=== PATIENT | female | born 1995 | race Hispanic/Latino ===

== ENCOUNTER 2020-10-23 17:30 | Emergency (ER) | payer OTHER, SELFPAY ==
[2020-10-23 17:37] VITALS: BP 103/52; PULSE 68; RESP 18; TEMP 36.6; O2SAT 99
[2020-10-23 18:28] LABS: Add Manual Diff / Slide Review NO; Basophils Absolute Auto 100 /uL (0-100); Basophils Percent Auto 0.9 % (0-2); Eosinophils Absolute Auto 200 /uL (0-450); Hematocrit 39.3 % (36-46); Hemoglobin 13.2 g/dL (12.0-16.0); Lymphocytes Absolute Auto 2600 /uL (1100-4500); Lymphocytes Percent Auto 41.4 % (25-40); Mean Corpuscular HGB Conc 33.5 % (30-36); Mean Corpuscular Hemoglobin 28.9 PG (26-34); Mean Corpuscular Volume 86.3 fL (80-100); Monocytes Absolute Auto 600 /uL (0-900); Monocytes Percent Auto 9.2 % (3-14); Neutrophils Absolute Auto 2800 /uL (1500-7000); Neutrophils Percent Auto 45.5 % (50-75); Platelet Count 233 X10^3/uL (150-400); Red Blood Cell Count 4.56 X10^6/uL (4.0-5.2); Red Cell Distribution Width 13.3 % (11.6-14.8); White Blood Cell Count 6.3 X10^3/uL (4.5-11.0)
[2020-10-23 18:52] LABS: Acetaminophen < 10 ug/mL (10-30); Alanine Aminotransferase 10 IU/L (<35); Albumin 4.3 g/dL (3.5-5.0); Albumin Globulin Ratio 1.5 (1.0-2.8); Alkaline Phosphatase 50 U/L (38-126); Aspartate Aminotransferase 21 IU/L (14-36); BUN Creatinine Ratio 14.1 (6-22); Bilirubin Total 0.2 mg/dL (0.2-1.3); Blood Urea Nitrogen 9 mg/dL (7-17); Calcium 9.2 mg/dL (8.4-10.2); Carbon Dioxide 28 mmol/L (22-32); Chloride 104 mmol/L (98-107); Estimated Glomerular Filt Rate > 60.0 mL/min (>60); Ethanol (ETOH) < 10 mg/dL; Globulin 2.9 g/dL (1.7-4.1); Glucose 91 mg/dL (70-100); HEMOLYSIS < 15 (0-50); Potassium 4.4 mmol/L (3.4-5.1); Salicylate < 1.0 mg/dL (<20); Sodium 138 mmol/L (137-145); Total Protein 7.2 g/dL (6.3-8.2)
--- NOTE | 2020-10-23 18:53 | ED_ITS ---
HPI - Psych General Chief Complaint: Psychiatric Symptoms Stated Complaint: Mental Health Time Seen by Provider: 10/23/20 17:57 Source: patient Mode of arrival: Ambulatory Limitations: no limitations History of Present Illness HPI Narrative: 25-year-old female nonsmoker with history of prior (but not current) drug abuse presents with her aunt in the chief complaint of episodes of self-harm recently. She has a known history of what she describes as borderline personality disorder and has struggled with it for quite some time. She came here from [place] a few months ago and has not been able to establish with a counselor or therapist here. She does have family and friends in the area and a good support system as well as gainful employment. 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 She is not suicidal or homicidal. Review of Systems Constitutional Constitutional: Denies chills, Denies fatigue, Denies fever(s), Denies frequent falls, Denies lethargy and Denies weakness Eyes Eyes: Denies change in vision, Denies eye discharge, Denies irritation and Denies loss of vision ENT Ears, Nose, Mouth, and Throat: Denies change in voice, Denies dizziness, Denies neck pain, Denies sore throat and Denies throat swelling Cardiovascular Cardiovascular: Denies chest pain, Denies irregular heart rhythm, Denies lightheadedness, Denies palpitations, Denies dyspnea, Denies dyspnea on exertion and Denies orthopnea Respiratory Respiratory: Denies cough, Denies dyspnea, Denies dyspnea on exertion and Denies wheezing Gastrointestinal Gastrointestinal: Denies abdominal pain, Denies change in bowel habits, Denies diarrhea, Denies nausea and Denies vomiting Musculoskeletal Musculoskeletal: Denies neck pain and Denies numbness Integumentary/Breasts Skin/Breast: Denies pruritus, Denies erythema, Denies rash and Denies wounds Neurologic Neurologic: Denies behavioral changes, Denies confusion, Denies dizziness, Denies frequent falls, Denies loss of vision, Denies numbness and Denies weakness Psychiatric Psychiatric: Denies anxiety, Denies behavioral changes, Denies confusion, Reports depression, Denies homicidal ideation and Denies suicidal ideation Comments: self harm Endocrine Endocrine: Denies fatigue, Denies flushing and Denies palpitations Hematologic/Lymphatic Hematologic/Lymphatic: Denies easy bruising Allergic/Immunologic Allergic/Immunologic: Denies urticaria, Denies throat swelling and Denies wheezing Patient History alcohol intake frequency: a few times a month Substance Use Type: marijuana Exam Narrative Exam Narrative: GENERAL: [25] year old patient appears stated age. Well-nourished, well-developed patient, in mild distress. GCS 15. Good eye contact, open communication, patient demonstrate is good insight HEAD: Atraumatic. Normocephalic. EYES: Pupils equal round and reactive. Extraocular motions intact. No scleral icterus. No injection or drainage. ENT: Nose without bleeding, purulent drainage. Throat without erythema, tonsillar hypertrophy or exudate. Airway patent. NECK: Trachea midline. Non tender CARDIOVASCULAR: Regular rate and rhythm without murmurs, gallops, or rubs. RESPIRATORY: Clear to auscultation. Breath sounds equal bilaterally. No wheezes, rales, or rhonchi. GASTROINTESTINAL: Abdomen soft, non-tender, nondistended. EXTREMITIES: No edema or joint tenderness. BACK: Nontender without deformity or crepitance. No flank tenderness. NEURO: AOx3. SKIN: Multiple superficial abrasions on volar surface of left forearm, none require repair or wound care No rash or erythema of visible areas Initial Vital Signs Initial Vital Signs: Vital Signs Temperature 98 F 10/23/20 17:37 Pulse Rate 68 10/23/20 17:37 Respiratory Rate 18 10/23/20 17:37 Blood Pressure 103/52 L 10/23/20 17:37 Pulse Oximetry 99 10/23/20 17:37 Course Course Course Narrative: Nursing as discussed with the be away and has established follow-up tomorrow morning. Patient has good insight and capacity. She is not suicidal, homicidal or gravely disabled. She is voluntary and requesting assistance. Nursing is established close follow-up and patient has been given return precautions. Orders Ordered: ED Orders 10/23/20 18:15 Acetaminophen Stat Complete Blood Count AUTO DIFF Stat Comprehensive Metabolic Panel Stat Ethanol (ETOH) Stat Free T4, Direct Thyroxine Stat Salicylate Stat Thyroid Stimulating Hormone Stat 10/23/20 18:37 Urine Drug Screen, Rapid Stat Vital Signs Vital signs: Vital Signs - 8 hr 10/23/20 17:37 10/23/20 20:07 Temperature 98 F Pulse Rate 68 77 Respiratory Rate 18 Blood Pressure 103/52 L 97/63 Pulse Oximetry 99 97 MDM - Psych Lab Data Result diagrams: 10/23/20 18:15 10/23/20 18:15 Labs: Lab Results 10/23/20 10/23/20 10/23/20 Range/Units 18:15 18:15 18:15 WBC 6.3 (4.5-11.0) X10^3/uL RBC 4.56 (4.0-5.2) X10^6/uL Hgb 13.2 (12.0-16.0) g/dL Hct 39.3 (36-46) % MCV 86.3 (80-100) fL MCH 28.9 (26-34) PG MCHC 33.5 (30-36) % RDW 13.3 (11.6-14.8) % Plt Count 233 (150-400) X10^3/uL Neut % (Auto) 45.5 L (50-75) % Lymph % (Auto) 41.4 H (25-40) % [place] % (Auto) 9.2 (3-14) % Eos % (Auto) 3.0 (2-4) % Baso % (Auto) 0.9 (0-2) % Neut # (Auto) 2800 (5257-4324) /uL Lymph # (Auto) 2600 (8536-9121) /uL [place] # (Auto) 600 (0-900) /uL Eos # (Auto) 200 (0-450) /uL Baso # (Auto) 100 (0-100) /uL Sodium 138 (137-145) mmol/L Potassium 4.4 (3.4-5.1) mmol/L Chloride 104 (98-107) mmol/L Carbon Dioxide 28 (22-32) mmol/L BUN 9 (7-17) mg/dL Creatinine 0.64 (0.52-1.04) mg/dL Estimated GFR > 60.0 (>60) mL/min BUN/Creatinine Ratio 14.1 (6-22) Glucose 91 (70-100) mg/dL Calcium 9.2 (8.4-10.2) mg/dL Total Bilirubin 0.2 (0.2-1.3) mg/dL AST 21 (14-36) IU/L ALT 10 (<35) IU/L Alkaline Phosphatase 50 (38-126) U/L Total Protein 7.2 (6.3-8.2) g/dL Albumin 4.3 (3.5-5.0) g/dL Globulin 2.9 (1.7-4.1) g/dL Albumin/Globulin Ratio 1.5 (1.0-2.8) TSH 1.66 (0.47-4.68) uIU/mL Free T4 0.86 (0.78-2.19) ng/dL Salicylates < 1.0 (<20) mg/dL U Opiates 300ng/mL cut (Negative) Ur Oxycodone Screen (Negative) Urine Methadone Screen (Negative) Acetaminophen < 10 L (10-30) ug/mL Ur Barbiturates Screen (Negative) U Tricyclic Antidepress (Negative) Ur Phencyclidine Scrn (Negative) Ur Amphetamines Screen (Negative) U Methamphetamines Scrn (Negative) Ur MDMA Scrn (Ecstasy) (Negative) U Benzodiazepines Scrn (Negative) Urine Cocaine Screen (Negative) U Marijuana (THC) Screen (Negative) Ethyl Alcohol < 10 ( - 10) mg/dL 10/23/20 Range/Units 18:37 WBC (4.5-11.0) X10^3/uL RBC (4.0-5.2) X10^6/uL Hgb (12.0-16.0) g/dL Hct (36-46) % MCV (80-100) fL MCH (26-34) PG MCHC (30-36) % RDW (11.6-14.8) % Plt Count (150-400) X10^3/uL Neut % (Auto) (50-75) % Lymph % (Auto) (25-40) % [place] % (Auto) (3-14) % Eos % (Auto) (2-4) % Baso % (Auto) (0-2) % Neut # (Auto) (8922-3145) /uL Lymph # (Auto) (2995-5677) /uL [place] # (Auto) (0-900) /uL Eos # (Auto) (0-450) /uL Baso # (Auto) (0-100) /uL Sodium (137-145) mmol/L Potassium (3.4-5.1) mmol/L Chloride (98-107) mmol/L Carbon Dioxide (22-32) mmol/L BUN (7-17) mg/dL Creatinine (0.52-1.04) mg/dL Estimated GFR (>60) mL/min BUN/Creatinine Ratio (6-22) Glucose (70-100) mg/dL Calcium (8.4-10.2) mg/dL Total Bilirubin (0.2-1.3) mg/dL AST (14-36) IU/L ALT (<35) IU/L Alkaline Phosphatase (38-126) U/L Total Protein (6.3-8.2) g/dL Albumin (3.5-5.0) g/dL Globulin (1.7-4.1) g/dL Albumin/Globulin Ratio (1.0-2.8) TSH (0.47-4.68) uIU/mL Free T4 (0.78-2.19) ng/dL Salicylates (<20) mg/dL U Opiates 300ng/mL cut Negative (Negative) Ur Oxycodone Screen Negative (Negative) Urine Methadone Screen Negative (Negative) Acetaminophen (10-30) ug/mL Ur Barbiturates Screen Negative (Negative) U Tricyclic Antidepress Negative (Negative) Ur Phencyclidine Scrn Negative (Negative) Ur Amphetamines Screen Negative (Negative) U Methamphetamines Scrn Negative (Negative) Ur MDMA Scrn (Ecstasy) Negative (Negative) U Benzodiazepines Scrn Negative (Negative) Urine Cocaine Screen Negative (Negative) U Marijuana (THC) Screen Positive H (Negative) Ethyl Alcohol ( - 10) mg/dL Point of Care Testing Test Results Negative Urine Dip Bedside Urine Glucose Negative Bedside Urine Bilirubin - Negative Bedside Urine Ketone - Negative Urine Specific [place] 1.015 Bedside Urine Occult Blood - Negative Bedside Urine pH 8 Bedside Urine Protein - Negative Bedside Urine Urobilinogen - Negative Bedside Urine Nitrite - Negative Bedside Urine Leukocytes - Negative Esterase Discharge Plan Departure Patient Disposition: Home Clinical Impression: Acute depression Instructions: Self-Harm, Depression Activity Restrictions/Additional Instructions: *You have been diagnosed with [depression, mild self-harm, borderline personality] *What to do: * as discussed with nursing please expect a phone call tomorrow morning at 9:00 a.m. from the crisis line to discuss a plan moving forward. They will help you through the crisis but are not long-term care and do not prescribe medications however they are great resource to help you a link up with long-term care. *Return to ER if you should have any new, worsening or concerning symptoms *If you feel that you are entering into mental health crisis you have multiple options 1. Return to the ER immediately 2. Call the Crisis Line at [phone] 3. Send an anonymous text by sending the word [place] to [phone] 4. Navigate your web browser to [employer] to engage in anonymous chat with a mental health worker
[2020-10-23 18:54] LABS: UR Morphine/Opiate cutoff 300 Negative (Negative); Ur Creatinine Normal (Normal); Ur Specific Gravity Normal (Normal); Urine Amphetamines Negative (Negative); Urine Barbiturates Negative (Negative); Urine Benzodiazepines Negative (Negative); Urine Cocaine Negative (Negative); Urine MDMA Negative (Negative); Urine Methadone Negative (Negative); Urine Methamphetamines Negative (Negative); Urine Oxycodone Negative (Negative); Urine Phencyclidine Negative (Negative); Urine Tetrahydrocannabinol Positive (Negative); Urine Tricyclic Antidepressant Negative (Negative); Urine pH Normal (Normal)
[2020-10-23 19:17] LABS: Free T4, Direct Thyroxine 0.86 ng/dL (0.78-2.19)
[2020-10-23 19:31] LABS: Thyroid Stimulating Hormone 1.66 uIU/mL (0.47-4.68)
[2020-10-23 20:07] VITALS: BP 97/63; PULSE 77; O2SAT 97
--- NOTE | 2020-10-23 20:15 | PC.NURSE ---
I spoke with Nel with [facility] at who set up a follow up call with the patient in the morning at 9am. patient is aware. provider aware.
== END 2020-10-23 20:24 | disposition home or self-care (01) ==
PROVIDERS: Emergency Medicine; Emergency Provider Emergency Medicine
DX: F32.9 Major depressive disorder, single episode, unspecified (principal)
CPT/HCPCS: 36415; 80053; 80305; 80320; 80329; 81003; 81025; 84439; 84443; 85025; 99284; G0480

== ENCOUNTER 2020-10-30 15:32 | Emergency (ER) | payer OTHER, SELFPAY ==
[2020-10-30 15:47] VITALS: BP 130/83; PULSE 88; RESP 20; TEMP 36.8; O2SAT 99; BMI 22.7
--- NOTE | 2020-10-30 15:54 | ED.NAVMDI ---
HPI - Nausea/Vomiting/Diarrhea General Chief complaint: Urogenital-Female Stated complaint: vomiting past day, nausea, crying Time Seen by Provider: 10/30/20 15:35 Source: patient Mode of arrival: Ambulatory Limitations: no limitations History of Present Illness HPI Narrative: 25-year-old female nonsmoker with history of prior (but not current) drug abuse and depression presents with the chief complaint of multiple episodes of nausea and vomiting over the course of the day with decreased appetite. She now is feeling dizzy, weak and lightheaded, particularly upon standing. She has had no fever chills. She denies dysuria, frequency or urgency. She denies any chest pain or shortness of breath. She denies any change in medications or diet. She additionally is complaining of suprapubic cramping and vaginal bleeding for the past 3 weeks. She states that at times it has been quite heavy but for the past few days she has not been saturating a pad per hour. She denies and was recently seen and evaluated here with a medical clearance with depression and was not at that time. MD complaint: nausea and vomiting Onset (ago): hour(s) Description of Vomiting: food contents Description of Diarrhea: none Quality: cramping Pain Consistency: constant Relieving factors: none Exacerbating factors: none Related Data Previous Rx's Medication Instructions Recorded medroxyprogesterone 10 mg PO DAILY #74 tab 10/30/20 Allergies Allergy/AdvReac Type Severity Reaction Status Date / Time No Known Drug Allergies Allergy Verified 10/30/20 15:53 Review of Systems Constitutional Constitutional: Denies chills, Denies fatigue, Denies fever(s), Denies frequent falls, Denies lethargy and Reports weakness Eyes Eyes: Denies change in vision, Denies eye discharge, Denies irritation and Denies loss of vision ENT Ears, Nose, Mouth, and Throat: Denies change in voice, Denies dizziness, Denies neck pain, Denies sore throat and Denies throat swelling Cardiovascular Cardiovascular: Denies chest pain, Denies irregular heart rhythm, Denies lightheadedness, Denies palpitations, Denies dyspnea, Denies dyspnea on exertion and Denies orthopnea Respiratory Respiratory: Denies cough, Denies dyspnea, Denies dyspnea on exertion and Denies wheezing Gastrointestinal Gastrointestinal: Denies abdominal pain, Denies change in bowel habits, Denies diarrhea, Reports nausea and Reports vomiting Genitourinary Genitourinary: Reports abnormal vaginal bleeding Musculoskeletal Musculoskeletal: Denies neck pain and Denies numbness Integumentary/Breasts Skin/Breast: Denies pruritus, Denies erythema, Denies rash and Denies wounds Neurologic Neurologic: Denies behavioral changes, Denies confusion, Denies dizziness, Denies frequent falls, Denies loss of vision, Denies numbness and Reports weakness Psychiatric Psychiatric: Denies anxiety, Denies behavioral changes, Denies confusion, Denies depression, Denies homicidal ideation and Denies suicidal ideation Endocrine Endocrine: Denies fatigue, Denies flushing and Denies palpitations Hematologic/Lymphatic Hematologic/Lymphatic: Denies easy bruising Allergic/Immunologic Allergic/Immunologic: Denies urticaria, Denies throat swelling and Denies wheezing Patient History Social History Smoking Status: Never smoker Smoking Status: Never smoker alcohol intake frequency: a few times a month Substance Use Type: marijuana Exam Narrative Exam Narrative: GENERAL: [25] year old patient appears stated age. Well-nourished, well-developed patient, in mild distress. HEAD: Atraumatic. Normocephalic. EYES: Pupils equal round and reactive. Extraocular motions intact. No scleral icterus. No injection or drainage. ENT: Nose without bleeding, purulent drainage. Throat without erythema, tonsillar hypertrophy or exudate. Airway patent. NECK: Trachea midline. Non tender CARDIOVASCULAR: Regular rate and rhythm without murmurs, gallops, or rubs. RESPIRATORY: Clear to auscultation. Breath sounds equal bilaterally. No wheezes, rales, or rhonchi. GASTROINTESTINAL: Abdomen soft, non-tender, nondistended. EXTREMITIES: No edema or joint tenderness. BACK: Nontender without deformity or crepitance. No flank tenderness. NEURO: AOx3. SKIN: No rash or erythema of visible areas Initial Vital Signs Initial Vital Signs: Vital Signs Temperature 98.2 F 10/30/20 15:47 Pulse Rate 88 10/30/20 15:47 Respiratory Rate 20 10/30/20 15:47 Blood Pressure 130/83 10/30/20 15:47 Pulse Oximetry 99 10/30/20 15:47 Course Orders Ordered: Discontinued Medications Sodium Chloride (Normal Saline 0.9%) 1,000 mls @ 1,000 mls/hr IV BOLUS ONE Stop: 10/30/20 16:54 Last Infusion: 10/30/20 17:20 Dose: 1,000 mls/hr Documented by: Admin: 10/30/20 16:16 Dose: 1,000 mls/hr Documented by: MARTA Ondansetron HCl (Ondansetron 4 Mg/2 Ml Inj) 4 mg IV Q4HR PRN PRN Reason: Nausea And Vomiting Last Admin: 10/30/20 16:17 Dose: 4 mg Documented by: MARTA Ondansetron HCl (Ondansetron 4 Mg Odt Prepack) 1 bottle MISC SEEINSTR ONE Stop: 10/30/20 17:43 Last Admin: 10/30/20 18:18 Dose: Not Given Documented by: MARTA Vital Signs Vital signs: Vital Signs - 8 hr 10/30/20 15:47 Temperature 98.2 F Pulse Rate 88 Respiratory Rate 20 Blood Pressure 130/83 Pulse Oximetry 99 MDM - Nausea/Vomiting/Diarrhea Lab Data Result diagrams: 10/30/20 16:12 10/30/20 16:12 Labs: Lab Results 10/30/20 10/30/20 10/30/20 Range/Units 16:12 16:12 16:25 WBC 5.2 (4.5-11.0) X10^3/uL RBC 4.41 (4.0-5.2) X10^6/uL Hgb 12.9 (12.0-16.0) g/dL Hct 37.7 (36-46) % MCV 85.4 (80-100) fL MCH 29.3 (26-34) PG MCHC 34.2 (30-36) % RDW 13.1 (11.6-14.8) % Plt Count 218 (150-400) X10^3/uL Neut % (Auto) 54.7 (50-75) % Lymph % (Auto) 35.2 (25-40) % [place] % (Auto) 7.8 (3-14) % Eos % (Auto) 1.5 L (2-4) % Baso % (Auto) 0.8 (0-2) % Neut # (Auto) 2900 (2432-6517) /uL Lymph # (Auto) 1800 (2575-3034) /uL [place] # (Auto) 400 (0-900) /uL Eos # (Auto) 100 (0-450) /uL Baso # (Auto) 0 (0-100) /uL Sodium 139 (137-145) mmol/L Potassium 3.6 (3.4-5.1) mmol/L Chloride 106 (98-107) mmol/L Carbon Dioxide 25 (22-32) mmol/L BUN 10 (7-17) mg/dL Creatinine 0.57 (0.52-1.04) mg/dL Estimated GFR > 60.0 (>60) mL/min BUN/Creatinine Ratio 17.5 (6-22) Glucose 90 (70-100) mg/dL Calcium 9.3 (8.4-10.2) mg/dL Total Bilirubin 0.5 (0.2-1.3) mg/dL AST 24 (14-36) IU/L ALT 11 (<35) IU/L Alkaline Phosphatase 53 (38-126) U/L Total Protein 7.5 (6.3-8.2) g/dL Albumin 4.4 (3.5-5.0) g/dL Globulin 3.1 (1.7-4.1) g/dL Albumin/Globulin Ratio 1.4 (1.0-2.8) Urine RBC 30-100/hpf H (0-5/HPF) Urine WBC 1-5/hpf (0-5/HPF) Ur Squamous Epith Cells 1-5 /hpf (0-5/HPF) Urine Bacteria Many (>30) H (None) Ur Culture Indicated? Specimen cultured Point of Care Testing Test Results Negative Urine Dip Bedside Urine Glucose 100 mg/dl Bedside Urine Ketone +/- 5 Urine Specific [place] 1.030 Bedside Urine Occult Blood +++ Bedside Urine pH 6 Bedside Urine Protein + 30 Bedside Urine Urobilinogen - Negative Bedside Urine Nitrite + Positive Bedside Urine Leukocytes - Negative Esterase Discharge Plan Departure Patient Disposition: Home Clinical Impression: Abnormal vaginal bleeding Vomiting Qualifiers: Vomiting type: unspecified Vomiting Intractability: intractable Nausea presence: with nausea Qualified Code(s): R11.2 - Nausea with vomiting, unspecified Instructions: DI for Vaginal Bleeding Activity Restrictions/Additional Instructions: *You have been diagnosed with [nausea, vomiting, dehydration and vaginal bleeding. Labs] *What to do: *Take medications as directed *Follow up with your primary care provider in 2-3 days, call for an appointment. Let them know you were seen in the Emergency Department and that we ask that you be seen in follow up. I understand that you do not have a primary care provider, I have given you contact information for the [facility] resource line which can help get you established with a primary care provider *Return to ER if you should have any new, worsening or concerning symptoms, such as [fever, shaking chills, vaginal bleeding through more than 1 pad per hour for multiple hours or other bothersome symptoms] Prescriptions: New medroxyprogesterone 10 mg tablet 10 mg PO DAILY Qty: 74 RF: 0
--- NOTE | 2020-10-30 15:56 | DI.US.S_ITS ---
PROCEDURE: US PELVIC COMPLETE INDICATIONS: BLEEDING, CRAMPING X 3 WEEKS TECHNIQUE: Real-time scanning was performed of the pelvic organs, with image documentation. The patient declined transvaginal scanning. COMPARISON: None. FINDINGS: Uterus: Uterus is normal in size at 7.6 x 4 x 5.5 cm. The endometrium measures 5 mm in combined thickness. Ovaries: The right ovary measures 2.7 x 2.6 x 2.9 cm. The left ovary measures 3.6 x 2.3 x 2.6 cm. The ovaries have a normal sonographic appearance. No adnexal masses are seen. Normal appearing arterial waveforms are confirmed to each ovary. Other: No pathologic free abdominal or pelvic fluid. IMPRESSION: Unremarkable transabdominal study, without an imaging explanation found for the patient's presenting history. Negative for ovarian torsion. Dictated by: Ronnie Davidson M.D. on 10/30/2020 at 16:33 Approved by: Ronnie Davidson M.D. on 10/30/2020 at 16:34
[2020-10-30] MEDS: SODIUM CHLORIDE 0.9% 1,000 ML 1000 ML IV (16:16)
[2020-10-30] MEDS: ONDANSETRON 4 MG/2 ML INJ IV (16:17)
[2020-10-30 16:19] LABS: Add Manual Diff / Slide Review NO; Basophils Absolute Auto 0 /uL (0-100); Basophils Percent Auto 0.8 % (0-2); Eosinophils Absolute Auto 100 /uL (0-450); Eosinophils Percent Auto 1.5 % (2-4); Hematocrit 37.7 % (36-46); Hemoglobin 12.9 g/dL (12.0-16.0); Lymphocytes Absolute Auto 1800 /uL (1100-4500); Lymphocytes Percent Auto 35.2 % (25-40); Mean Corpuscular HGB Conc 34.2 % (30-36); Mean Corpuscular Hemoglobin 29.3 PG (26-34); Mean Corpuscular Volume 85.4 fL (80-100); Monocytes Absolute Auto 400 /uL (0-900); Monocytes Percent Auto 7.8 % (3-14); Neutrophils Absolute Auto 2900 /uL (1500-7000); Neutrophils Percent Auto 54.7 % (50-75); Platelet Count 218 X10^3/uL (150-400); Red Blood Cell Count 4.41 X10^6/uL (4.0-5.2); Red Cell Distribution Width 13.1 % (11.6-14.8); White Blood Cell Count 5.2 X10^3/uL (4.5-11.0)
[2020-10-30 16:31] LABS: Alanine Aminotransferase 11 IU/L (<35); Albumin 4.4 g/dL (3.5-5.0); Albumin Globulin Ratio 1.4 (1.0-2.8); Alkaline Phosphatase 53 U/L (38-126); Aspartate Aminotransferase 24 IU/L (14-36); BUN Creatinine Ratio 17.5 (6-22); Bilirubin Total 0.5 mg/dL (0.2-1.3); Blood Urea Nitrogen 10 mg/dL (7-17); Calcium 9.3 mg/dL (8.4-10.2); Carbon Dioxide 25 mmol/L (22-32); Chloride 106 mmol/L (98-107); Estimated Glomerular Filt Rate > 60.0 mL/min (>60); Globulin 3.1 g/dL (1.7-4.1); Glucose 90 mg/dL (70-100); HEMOLYSIS < 15 (0-50); Potassium 3.6 mmol/L (3.4-5.1); Sodium 139 mmol/L (137-145); Total Protein 7.5 g/dL (6.3-8.2)
[2020-10-30 18:01] LABS: Bacteria Urine Many (>30); Culture Indicated Urine Specimen Cultured; RBC Urine 30-100/HPF (0-5/HPF); Squamous Epithelial Cell Urine 1-5 /HPF (0-5/HPF); WBC Urine 1-5/HPF (0-5/HPF)
[2020-10-30 18:13] VITALS: BP 113/75; PULSE 65; RESP 14; O2SAT 99
[2020-10-30 18:15] VITALS: BP 113/76; PULSE 65; RESP 14; O2SAT 99
== END 2020-10-30 18:16 | disposition home or self-care (01) ==
PROVIDERS: Emergency Provider Emergency Medicine
DX: N93.9 Abnormal uterine and vaginal bleeding, unspecified (principal); R11.2 Nausea with vomiting, unspecified
CPT/HCPCS: 76830; 76856; 80053; 81003; 81015; 81025; 85025; 87077; 87086; 87186; 96361; 96374; 99284; J2405

== ENCOUNTER 2022-09-24 09:07 | Emergency (ER) | payer OTHER, SELFPAY ==
[2022-09-24] VITALS (10 sets, daily range): BP systolic 103–134; BP diastolic 54–86; PULSE 65–81; RESP 15; TEMP 37.1; O2SAT 99–100; BMI 25.0
[2022-09-24 09:37] LABS: Add Manual Diff / Slide Review NO; Basophils Absolute Auto 0 /uL (0-100); Basophils Percent Auto 0.7 % (0-2); Eosinophils Absolute Auto 100 /uL (0-450); Eosinophils Percent Auto 1.7 % (2-4); Hematocrit 38.3 % (36-46); Hemoglobin 12.7 g/dL (12.0-16.0); Lymphocytes Absolute Auto 1800 /uL (1100-4500); Lymphocytes Percent Auto 38.5 % (25-40); Mean Corpuscular HGB Conc 33.1 % (30-36); Mean Corpuscular Volume 84.4 fL (80-100); Monocytes Absolute Auto 400 /uL (0-900); Neutrophils Absolute Auto 2400 /uL (1500-7000); Neutrophils Percent Auto 51.1 % (50-75); Platelet Count 280 X10^3/uL (150-400); Red Blood Cell Count 4.54 X10^6/uL (4.0-5.2); Red Cell Distribution Width 13.9 % (11.6-14.8); White Blood Cell Count 4.6 X10^3/uL (4.5-11.0)
[2022-09-24 09:48] LABS: Alanine Aminotransferase 20 IU/L (<35); Albumin 4.2 g/dL (3.5-5.0); Albumin Globulin Ratio 1.2 (1.0-2.8); Alkaline Phosphatase 69 U/L (38-126); Aspartate Aminotransferase 32 IU/L (14-36); BUN Creatinine Ratio 14.8 (6-22); Bilirubin Total 0.4 mg/dL (0.2-1.3); Blood Urea Nitrogen 8 mg/dL (7-17); Calcium 8.1 mg/dL (8.4-10.2); Carbon Dioxide 22 mmol/L (22-32); Chloride 106 mmol/L (98-107); Estimated Glomerular Filt Rate > 60 mL/min (>60); Globulin 3.4 g/dL (1.7-4.1); Glucose 100 mg/dL (70-100); HEMOLYSIS 54 (0-50); Lipase 117 U/L (23-300); Potassium 4.5 mmol/L (3.4-5.1); Sodium 136 mmol/L (137-145); Total Protein 7.6 g/dL (6.3-8.2)
[2022-09-24 10:25] LABS: Creatine Kinase 106 U/L (30-135)
[2022-09-24 10:25] LABS: Bacteria Urine None Seen; Culture Indicated Urine Cult Not Indicated; RBC Urine 5-10/HPF (0-5/HPF); WBC Urine None Seen (0-5/HPF)
[2022-09-24 10:38] LABS: Troponin I < 0.012 ng/mL (0.01-0.034)
[2022-09-24 10:41] LABS: CKMB % Relative Index 0.3 % (1.5-5.0); Creatine Kinase MB 0.33 ng/mL (<2.37)
--- NOTE | 2022-09-24 11:37 | ED.ABDPAIN ---
HPI - Abdominal Pain General Chief Complaint: Abdominal Pain Stated Complaint: abdominal and breast pain, excruciating Time Seen by Provider: 09/24/22 10:05 Source: patient Mode of arrival: Ambulatory Limitations: no limitations History of Present Illness HPI narrative: This is a 27-year-old female with history of bipolar disorder with psychotic features on what she describes as anti seizure medication for this. Patient states no prior seizures. She also reports a history of depression. Patient states she has had left-sided chest pain deep to the breath since last September 20 patient states she does not recall any trauma injury or other things that caused the pain. She has not had pain in this area before she states it is worse with movement particularly movement of extremities or when she gets up gets down or moves around. Patient states she is had heartburn before but feels different it is more to the left side. She states has never stopped her gone away. She thought she felt some bumps underneath the left breast. She states the breast itself is not painful. She thought that maybe there was a little bit of redness underneath on the edge of her bra. Patient states no blisters or skin changes. Patient denies fevers, no chills, no cold, cough or congestion. No shortness of breath. She denies any nausea or vomiting. She denies any GI urinary symptoms. She states no prior surgeries. No known drug allergies. She states she is not taken anything for pain prescription or [id number]. She denies tobacco, alcohol or illicit. [facility] Related Data Previous Rx's Medication Instructions Recorded medroxyprogesterone 10 mg tablet 10 mg PO DAILY #74 tabs 10/30/20 Allergies Allergy/AdvReac Type Severity Reaction Status Date / Time No Known Drug Allergies Allergy Verified 09/24/22 09:21 Review of Systems Review of Systems ROS Unobtainable: All systems reviewed & are unremarkable except as noted in HPI and below Patient History Social History Smoking Status: Never smoker Smoking Status: Never smoker alcohol intake frequency: a few times a month Substance Use Type: marijuana Exam Narrative Exam Narrative: GENERAL: Alert and oriented x three, female in mild distress HEENT: Head normocephalic, atraumatic, EOMI, pupils reactive, face symmetric, moist mucous membranes NECK: Supple, full range of motion CARDIOVASCULAR: Regular rate and rhythm without murmurs, rubs or gallops. Patient has reproducible chest pain under the left breast warmth, erythema, no blisters or skin changes. No ecchymosis. Patient has full range of motion but is uncomfortable when she moves with rotation, side bending getting up and down off the bed. RESPIRATORY: Breath sounds equal bilaterally, no wheezes rales or rhonchi. No tachypnea or accessory muscle use. Speaks in full sentences. ABDOMEN: Soft, nontender. Normoactive bowel sounds all 4 quadrants. No guarding or rebound, rigidity, no mass : No CVA tenderness BACK: No cervical, thoracic or lumbar vertebral point tenderness. EXTREMITIES: Normal range of motion, no clubbing or edema. Neurovascularly intact. 5/5 muscle strength upper extremities. NEUROLOGICAL: Cranial nerves II through XII grossly intact. Moving all extremities SKIN: Warm, dry, no petechiae, no rashes or lesions, vesicles or other skin changes. Initial Vital Signs Initial Vital Signs: Vital Signs Temperature 98.8 F 09/24/22 09:09 Pulse Rate 77 09/24/22 09:09 Respiratory Rate 15 09/24/22 09:09 Blood Pressure 115/65 09/24/22 09:09 Pulse Oximetry 99 09/24/22 09:09 Oxygen Delivery Method Room Air 09/24/22 09:09 Scores HEART Score Heart Score history: Slightly Suspicious Heart Score EKG: Normal Heart Score Age: < 45 years old Heart Score risk factors: No known risk factors Heart Score troponin: < or = to normal limit Heart Score Total: 0 Course Orders Ordered: ED Orders 09/24/22 09:30 Complete Blood Count AUTO DIFF Stat Comprehensive Metabolic Panel Stat Lipase Stat Troponin & CK Cardiac Panel Stat 09/24/22 10:10 Urine Microscopic Stat 09/24/22 10:24 EKG-12 Lead Stat 09/24/22 11:49 Chest [XR chest 2V] Stat Discontinued Medications Ketorolac Tromethamine (Ketorolac 30 Mg/Ml Vial) 15 mg IV NOW ONE Stop: 09/24/22 11:51 Last Admin: 09/24/22 12:15 Dose: 15 mg Documented By: AT Vital Signs Vital signs: Vital Signs - 8 hr 09/24/22 10:30 09/24/22 10:30 09/24/22 11:00 Pulse Rate 65 Blood Pressure 121/78 103/54 L Pulse Oximetry 100 Oxygen Delivery Method 09/24/22 11:00 09/24/22 11:30 09/24/22 11:30 Pulse Rate 81 68 Blood Pressure 123/75 Pulse Oximetry 100 100 Oxygen Delivery Method 09/24/22 12:00 09/24/22 12:30 09/24/22 12:30 Pulse Rate 72 72 Blood Pressure 120/74 Pulse Oximetry 100 100 Oxygen Delivery Method Room Air Room Air 09/24/22 13:00 09/24/22 13:00 Pulse Rate 68 Blood Pressure 134/86 Pulse Oximetry 100 Oxygen Delivery Method Room Air MDM - Abdominal Pain Lab Data 09/24/22 09:30 09/24/22 09:30 Labs: Lab Results 09/24/22 09/24/22 09/24/22 Range/Units 09:30 09:30 09:30 WBC 4.6 (4.5-11.0) X10^3/uL RBC 4.54 (4.0-5.2) X10^6/uL Hgb 12.7 (12.0-16.0) g/dL Hct 38.3 (36-46) % MCV 84.4 (80-100) fL MCH 28.0 (26-34) PG MCHC 33.1 (30-36) % RDW 13.9 (11.6-14.8) % Plt Count 280 (150-400) X10^3/uL Neut % (Auto) 51.1 (50-75) % Lymph % (Auto) 38.5 (25-40) % Montague % (Auto) 8.0 (3-14) % Eos % (Auto) 1.7 L (2-4) % Baso % (Auto) 0.7 (0-2) % Neut # (Auto) 2400 (6461-2654) /uL Lymph # (Auto) 1800 (9748-6374) /uL Montague # (Auto) 400 (0-900) /uL Eos # (Auto) 100 (0-450) /uL Baso # (Auto) 0 (0-100) /uL Sodium 136 L (137-145) mmol/L Potassium 4.5 (3.4-5.1) mmol/L Chloride 106 (98-107) mmol/L Carbon Dioxide 22 (22-32) mmol/L BUN 8 (7-17) mg/dL Creatinine 0.54 (0.52-1.04) mg/dL Estimated GFR > 60 (>60) mL/min BUN/Creatinine Ratio 14.8 (6-22) Glucose 100 (70-100) mg/dL Calcium 8.1 L (8.4-10.2) mg/dL Total Bilirubin 0.4 (0.2-1.3) mg/dL AST 32 (14-36) IU/L ALT 20 (<35) IU/L Alkaline Phosphatase 69 (38-126) U/L Total Creatine Kinase 106 (30-135) U/L CK-MB (CK-2) 0.33 (<2.37) ng/mL CK-MB (CK-2) Rel Index 0.3 L (1.5-5.0) % Troponin I < 0.012 (0.01-0.034) ng/mL Total Protein 7.6 (6.3-8.2) g/dL Albumin 4.2 (3.5-5.0) g/dL Globulin 3.4 (1.7-4.1) g/dL Albumin/Globulin Ratio 1.2 (1.0-2.8) Lipase 117 (23-300) U/L Urine RBC (0-5/HPF) Urine WBC (0-5/HPF) Urine Bacteria (None) Ur Culture Indicated? 09/24/22 Range/Units 10:10 WBC (4.5-11.0) X10^3/uL RBC (4.0-5.2) X10^6/uL Hgb (12.0-16.0) g/dL Hct (36-46) % MCV (80-100) fL MCH (26-34) PG MCHC (30-36) % RDW (11.6-14.8) % Plt Count (150-400) X10^3/uL Neut % (Auto) (50-75) % Lymph % (Auto) (25-40) % Montague % (Auto) (3-14) % Eos % (Auto) (2-4) % Baso % (Auto) (0-2) % Neut # (Auto) (0028-1439) /uL Lymph # (Auto) (6488-3173) /uL Montague # (Auto) (0-900) /uL Eos # (Auto) (0-450) /uL Baso # (Auto) (0-100) /uL Sodium (137-145) mmol/L Potassium (3.4-5.1) mmol/L Chloride (98-107) mmol/L Carbon Dioxide (22-32) mmol/L BUN (7-17) mg/dL Creatinine (0.52-1.04) mg/dL Estimated GFR (>60) mL/min BUN/Creatinine Ratio (6-22) Glucose (70-100) mg/dL Calcium (8.4-10.2) mg/dL Total Bilirubin (0.2-1.3) mg/dL AST (14-36) IU/L ALT (<35) IU/L Alkaline Phosphatase (38-126) U/L Total Creatine Kinase (30-135) U/L CK-MB (CK-2) (<2.37) ng/mL CK-MB (CK-2) Rel Index (1.5-5.0) % Troponin I (0.01-0.034) ng/mL Total Protein (6.3-8.2) g/dL Albumin (3.5-5.0) g/dL Globulin (1.7-4.1) g/dL Albumin/Globulin Ratio (1.0-2.8) Lipase (23-300) U/L Urine RBC 5-10/hpf H (0-5/HPF) Urine WBC None seen (0-5/HPF) Urine Bacteria None seen (None) Ur Culture Indicated? Cult not indicated Point of care testing: Point of Care Testing Test Results Negative Urine Dip Bedside Urine Glucose Negative Bedside Urine Bilirubin - Negative Bedside Urine Ketone - Negative Urine Specific Eccles 1.005 Bedside Urine Occult Blood +++ Bedside Urine pH 8.5 Bedside Urine Protein - Negative Bedside Urine Urobilinogen - Negative Bedside Urine Nitrite - Negative Bedside Urine Leukocytes - Negative Esterase Imaging Data Chest x-ray: Radiologist's Impression: Close Chest X-Ray (Signed) Nyasia Laws - 09/24/22 Launch?[address] [address] XRay Report Signed Patient: Dipti Tom MR#: [id number] : 1995 Acct:[id number] Age/Sex: 27 / F Date of Service: 09/24/22 Loc: ED Accession Number: [id number] ?? Procedure: XR chest 2V Ordering Provider: Candy Hayes D.O. PROCEDURE:? XR CHEST 2V ? INDICATIONS:? left chest pain for several days, worse with movement ? TECHNIQUE:? 2 views of the chest were acquired.? ? COMPARISON:? None. ? FINDINGS:? ? Surgical changes and devices:? None.? ? Lungs and pleura:? Lungs are clear.? No pleural effusions or pneumothorax.? ? Mediastinum:? Mediastinal contours are normal.? Heart size is normal.? ? Bones and chest wall:? No suspicious bony abnormalities.? Soft tissues appear unremarkable.? ? IMPRESSION:? No acute pulmonary process. ? ? Dictated by: Nyasia Laws M.D. on 09/24/2022 at 12:46 ? ? Approved by: Nyasia Laws M.D. on 09/24/2022 at 12:46?? ECG Data Attestation: I personally reviewed and interpreted this ECG as follows: Prior ECG tracings: not available for review Interpretation: Sinus rhythm rate of 70 MI 146 QRS is 70 QTC of 412. No acute ST elevation or depression appreciated. Lead 3 T-wave is inverted not appreciated contiguous leads. Patient does not have prior available for comparison. MDM Narrative Medical decision making narrative: This is a 27-year-old female comes in with complaint of left-sided chest pain that is reproducible she describes it more in the chest wall and not deeper but also not in the breast tissue. Patient states movement seems to be worse I am able to reproduce it on exam. Lab workup including CBC, CMP, troponin, lipase and LFTs are all negative, patient does not have any skin changes consistent with shingles or rash or trauma. Patient does not recall any traumatic injuries. Chest x-ray was obtained and shows no acute change. Patient's heart score is 0, troponin was not repeated as patient has had persistent chest pain without any resolution for 4-5 days with no acute EKG changes no stuttering symptoms. Discussed with patient I suspect more of a musculoskeletal source of her pain. She did receive Toradol she is feeling more comfortable. Plan for discharge home return precautions all questions answered. Discharge Plan Departure Patient Disposition: Home Clinical Impression: Left-sided chest pain Instructions: DI for Atypical Chest Pain Activity Restrictions/Additional Instructions: Follow-up for recheck if your symptoms are persisting. You may take Tylenol up to a 1000 mg every 6 hours and/or ibuprofen up to 800 mg as needed for pain. Please return for new or worsening symptoms, fevers, passing out, new shortness of breath, new swelling in her extremities or other new or concerning changes Prescriptions: No Action medroxyprogesterone 10 mg tablet 10 mg PO DAILY Qty: 74 0RF Rx Instructions: 20mg PO q2 until bleeding stops Then 20mg q4 x48 Then 20mg q6 x48 Then 20mg q8 x48 Then 20mg q12 x 48 Then 20mg qday x 7days Stand Alone Forms: Patient Portal/API
--- NOTE | 2022-09-24 11:49 | DI.RAD.S_ITS ---
PROCEDURE: XR CHEST 2V INDICATIONS: left chest pain for several days, worse with movement TECHNIQUE: 2 views of the chest were acquired. COMPARISON: None. FINDINGS: Surgical changes and devices: None. Lungs and pleura: Lungs are clear. No pleural effusions or pneumothorax. Mediastinum: Mediastinal contours are normal. Heart size is normal. Bones and chest wall: No suspicious bony abnormalities. Soft tissues appear unremarkable. IMPRESSION: No acute pulmonary process. Dictated by: Nyasia Laws M.D. on 09/24/2022 at 12:46 Approved by: Nyasia Laws M.D. on 09/24/2022 at 12:46
[2022-09-24] MEDS: KETOROLAC 30 MG/ML VIAL 15 MG IV (12:15)
== END 2022-09-24 13:15 | disposition home or self-care (01) ==
PROVIDERS: Emergency Provider Emergency Medicine
DX: R07.9 Chest pain, unspecified (principal)
CPT/HCPCS: 36415; 71046; 80053; 81003; 81015; 81025; 82550; 82553; 83690; 84484; 85025; 93005; 96374; 99284; J1885

== ENCOUNTER 2022-12-03 12:05 | Emergency (ER) | payer OTHER, SELFPAY ==
[2022-12-03 12:10] VITALS: BP 128/88; PULSE 81; RESP 18; TEMP 36.4; O2SAT 98; BMI 25.0
--- NOTE | 2022-12-03 12:28 | ED.GENADULT ---
HPI - General Adult <Carolina Sun PA-C - Last Filed: 12/03/22 14:22> General Chief complaint: Recheck/Abnormal Lab/Rx Stated complaint: has been w/out medications T-3/ withdrawl symptoms Time Seen by Provider: 12/03/22 12:24 History of Present Illness HPI narrative: 27-year-old female with past medical history borderline personality disorder, PTSD presents to the ED for a medication refill of the Seroquel that she takes daily. Patient states she takes 800 mg of Seroquel nightly, has run out of her meds for 3 days, feels some withdrawal symptoms including nausea and vomiting, anorexia, insomnia. Denies chest pain, shortness of breath. Denies suicidal ideation, homicidal ideation. Patient states that she [facility], that the refills have been inconsistent. It is unclear why she has all these breaks between her refills. Related Data Home Medications Medication Instructions Recorded Confirmed quetiapine 400 mg tablet,extended 800 mg PO BEDTIME 12/03/22 12/03/22 release 24 hr Previous Rx's Medication Instructions Recorded quetiapine 200 mg tablet 200 mg PO BEDTIME #10 tabs 12/03/22 Allergies Allergy/AdvReac Type Severity Reaction Status Date / Time No Known Drug Allergies Allergy Verified 12/03/22 12:37 Review of Systems <Carolina Sun PA-C - Last Filed: 12/03/22 14:22> Review of Systems ROS Unobtainable: All systems reviewed & are unremarkable except as noted in HPI and below Constitutional Constitutional: Denies chills, Reports difficulty sleeping, Denies fatigue, Denies fever(s), Denies frequent falls, Denies lethargy, Reports poor appetite and Denies weakness Eyes Eyes: Denies change in vision, Denies eye discharge, Denies irritation and Denies loss of vision ENT Ears, Nose, Mouth, and Throat: Denies change in voice, Denies dizziness, Denies neck pain, Denies sore throat and Denies throat swelling Cardiovascular Cardiovascular: Denies chest pain, Denies irregular heart rhythm, Denies lightheadedness, Denies palpitations, Denies dyspnea, Denies dyspnea on exertion and Denies orthopnea Respiratory Respiratory: Denies cough, Denies dyspnea, Denies dyspnea on exertion and Denies wheezing Gastrointestinal Gastrointestinal: Denies abdominal pain, Denies change in bowel habits, Denies diarrhea, Reports nausea and Reports vomiting Genitourinary Genitourinary: Denies hematuria, Denies flank pain, Denies urinary incontinence and Denies urinary urgency Musculoskeletal Musculoskeletal: Denies back pain, Denies muscle weakness, Denies neck pain, Denies numbness and Denies tingling Integumentary/Breasts Skin/Breast: Denies pruritus, Denies erythema, Denies rash and Denies wounds Neurologic Neurologic: Denies behavioral changes, Denies confusion, Denies dizziness, Denies frequent falls, Denies loss of vision, Denies numbness, Denies tingling and Denies weakness Psychiatric Psychiatric: Denies anxiety, Denies behavioral changes, Denies confusion, Denies depression, Denies homicidal ideation and Denies suicidal ideation Endocrine Endocrine: Denies fatigue, Denies flushing and Denies palpitations Hematologic/Lymphatic Hematologic/Lymphatic: Denies easy bruising Allergic/Immunologic Allergic/Immunologic: Denies urticaria, Denies throat swelling and Denies wheezing Patient History <Carolina Sun PA-C - Last Filed: 12/03/22 14:22> Social History Smoking Status: Never smoker Smoking Status: Never smoker alcohol intake frequency: a few times a month Substance Use Type: marijuana Exam <Carolina Sun PA-C - Last Filed: 12/03/22 14:22> Narrative Exam Narrative: Const General:?cooperative, healthy appearing and comfortable [facility] Head:?normal to inspection Ears:?hearing grossly normal bilaterally Nose:?external nose normal Face and sinus:?normal facial exam and sinuses nontender Mouth:?oral mucosae normal Throat:?posterior oropharynx normal Eyes General:?appearance normal, both eyes and all related structures Neck Neck:?normal visual inspection and no lymphadenopathy noted Resp Effort & Inspection:?normal respiratory effort Auscultation:?clear to auscultation bilaterally Cardio Rate:?regular rate Rhythm:?regular rhythm GI Abdomen is soft, nondistended, nontender to palpation. Neuro General:?patient alert, patient awake and patient oriented x3 Initial Vital Signs Initial Vital Signs: Vital Signs Temperature 97.6 F 12/03/22 12:10 Pulse Rate 81 12/03/22 12:10 Respiratory Rate 18 12/03/22 12:10 Blood Pressure 128/88 05/15/23 12:10 Pulse Oximetry 98 12/03/22 12:10 Oxygen Delivery Method Room Air 12/03/22 12:10 <DO Rip Jaquez Last Filed: 12/03/22 15:11> Initial Vital Signs Initial Vital Signs: Vital Signs Temperature 97.6 F 12/03/22 12:10 Pulse Rate 81 12/03/22 12:10 Respiratory Rate 18 12/03/22 12:10 Blood Pressure 128/88 12/03/22 12:10 Pulse Oximetry 98 12/03/22 12:10 Oxygen Delivery Method Room Air 12/03/22 12:10 Course <Carolina Sun PA-C - Last Filed: 12/03/22 14:22> Vital Signs Vital signs: Vital Signs - 8 hr 12/03/22 12:10 Temperature 97.6 F Pulse Rate 81 Respiratory Rate 18 Blood Pressure 128/88 Pulse Oximetry 98 Oxygen Delivery Method Room Air <DO Rip Jaquez Last Filed: 12/03/22 15:11> Vital Signs Vital signs: Vital Signs - 8 hr 12/03/22 12:10 Temperature 97.6 F Pulse Rate 81 Respiratory Rate 18 Blood Pressure 128/88 Pulse Oximetry 98 Oxygen Delivery Method Room Air Medical Decision Making <Carolina Sun PA-C - Last Filed: 12/03/22 14:22> MDM Narrative Medical decision making narrative: 27-year-old female with past medical history borderline personality disorder, PTSD presents to the ED for a medication refill of the Seroquel that she takes daily. Physical exam is reassuring. Called [facility] to confirm medications and doses that the patient has been prescribed. Spoke with Bryan, who is 1 of the nurses at the [facility] who confirmed that patient has been prescribed 200 mg of Seroquel nightly along with 40 mg of fluoxetine in the morning. He confirmed that patient receives 400 mg tablets, which she is instructed to take half of every night. Discussed the dosage with the patient, who clarified that she was taking half a tablet of a 800 mg tablet which put her dosage at 400 mg. [facility] also [facility] that the [facility] has been [facility] in the mail on the 27 of November, that she should be receiving it any day now. [facility] also set up a phone appointment for patient with Dr. Wei who she normally sees at the clinic for 12/10/2022 at 10:[address] Wei will call patient for the appointment. Discussed with patient the importance of taking her medications as prescribed and keeping up her follow-up appointments in order to ensure no breaks in medications in the future. Prescribed 200 mg of Seroquel for 10 days to ensure that patient does not further withdrawal while she waits for her refill. Patient agrees to keep up her appointment for next Saturday with Dr. Wei. ED return precautions were also discussed with patient. Patient verbalized understanding. Discharge Plan Departure Patient Disposition: Home Clinical Impression: Encounter for medication refill Activity Restrictions/Additional Instructions: You were seen in the ED today for a medication refill of the Seroquel that you ran out 3 days prior. We contacted the [facility] and got confirmation of a 200 mg per night dose of Seroquel that you have been prescribed. They also informed us that you will need a follow-up appointment in order to receive consistent refills. We have booked you an appointment for 10:30 a.m. on the 10 of December, which is next Saturday. Dr. Wei will be calling you on your cell phone for this appointment. Your latest refill has also been mailed on the 27 of November, you should be receiving it in a day or two. Please return to the ED if you experience any chest pain, shortness of breath, suicidal thoughts, thoughts of hurting others. Prescriptions: New quetiapine 200 mg tablet 200 mg PO BEDTIME Qty: 10 0RF No Action quetiapine 400 mg Tablet Extended Release 24 Hr 800 mg PO BEDTIME Referrals: Miscellaneous,Doctor, MD [Primary Care Provider] - Stand Alone Forms: Patient Portal/API <Keyshawn Coyle, DO - Last Filed: 12/03/22 15:11> Cosign ED Attending Sarojature Attestation: Dr Coyle Co-Sign Statement: I was available for consultation during this patient's emergency department visit. This chart is signed by myself for administrative purposes only. I did not have direct contact with this patient during this visit. They were seen independently by the [facility].
== END 2022-12-03 13:53 | disposition home or self-care (01) ==
PROVIDERS: Emergency Provider Student in an Organized Health Care Education/Training Program
DX: Z76.0 Encounter for issue of repeat prescription (principal)
CPT/HCPCS: 99281

== ENCOUNTER 2023-05-25 10:41 | Emergency (ER) | payer OTHER, SELFPAY ==
[2023-05-25 11:12] VITALS: BP 126/72; PULSE 84; RESP 20; TEMP 36.9; O2SAT 98; BMI 28.1
--- NOTE | 2023-05-25 14:01 | PC.NURSE ---
Multiple staff members called patient at various times. no answer.
== END 2023-05-25 14:05 | disposition home or self-care (01) ==
PROVIDERS: Emergency Provider Emergency Medicine
DX: R10.2 Pelvic and perineal pain (principal)
CPT/HCPCS: 99281

== ENCOUNTER 2023-07-07 18:30 | Emergency (ER) | payer OTHER, SELFPAY ==
[2023-07-07] VITALS (8 sets, daily range): BP systolic 116–142; BP diastolic 71–91; PULSE 71–98; RESP 18–22; TEMP 36.6; O2SAT 98–100; BMI 28.1
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
[2023-07-07] MEDS: KETOROLAC 30 MG/ML VIAL 15 MG IV (20:39)
[2023-07-07] MEDS: SODIUM CHLORIDE 0.9% 1,000 ML 1000 ML IV (20:40)
[2023-07-07 20:53] LABS: Add Manual Diff / Slide Review NO; Basophils Absolute Auto 0 /uL (0-100); Basophils Percent Auto 0.8 % (0-2); Eosinophils Absolute Auto 100 /uL (0-450); Hematocrit 37.3 % (36-46); Hemoglobin 12.6 g/dL (12.0-16.0); Lymphocytes Absolute Auto 1200 /uL (1100-4500); Lymphocytes Percent Auto 22.9 % (25-40); Mean Corpuscular HGB Conc 33.7 % (30-36); Mean Corpuscular Hemoglobin 28.5 PG (26-34); Mean Corpuscular Volume 84.4 fL (80-100); Monocytes Absolute Auto 1100 /uL (0-900); Monocytes Percent Auto 20.7 % (3-14); Neutrophils Absolute Auto 2900 /uL (1500-7000); Neutrophils Percent Auto 53.6 % (50-75); Platelet Count 244 X10^3/uL (150-400); Red Blood Cell Count 4.42 X10^6/uL (4.0-5.2); Red Cell Distribution Width 14.1 % (11.6-14.8); White Blood Cell Count 5.3 X10^3/uL (4.5-11.0)
[2023-07-07 21:05] LABS: HEMOLYSIS < 15 (0-50)
[2023-07-07 21:11] LABS: Alanine Aminotransferase 16 IU/L (<35); Albumin Globulin Ratio 1.2 (1.0-2.8); Alkaline Phosphatase 63 U/L (38-126); Aspartate Aminotransferase 26 IU/L (14-36); BUN Creatinine Ratio 6.7 (6-22); Bilirubin Total 0.4 mg/dL (0.2-1.3); Blood Urea Nitrogen 5 mg/dL (7-17); Calcium 8.8 mg/dL (8.4-10.2); Carbon Dioxide 28 mmol/L (22-32); Chloride 103 mmol/L (98-107); Estimated Glomerular Filt Rate > 60 mL/min (>60); Globulin 3.3 g/dL (1.7-4.1); Glucose 95 mg/dL (70-100); Potassium 3.7 mmol/L (3.4-5.1); Sodium 135 mmol/L (137-145); Total Protein 7.3 g/dL (6.3-8.2)
[2023-07-07 21:42] LABS: HCG Quantitative /Beta subunit < 2.4 mIU/mL
[2023-07-07 22:37] LABS: Adenovirus Not Detected (Not Detect); B. parapertussis Not Detected (Not Detecte); Bordetella pertussis Not Detected (Not Detect); Chlamydophila pneumoniae Not Detected (Not Detect); Coronavirus 229E Not Detected (Not Detect); Coronavirus HKU1 Not Detected (Not Detect); Coronavirus NL 63 Not Detected (Not Detect); Coronavirus OC43 Not Detected (Not Detect); Human Metapneumovirus Not Detected (Not Detect); Human Rhinovirus/Enterovirus Not Detected (Not Detect); Influenza A Not Detected (Not Detect); Influenza B Not Detected (Not Detect); Mycoplasma pneumoniae Not Detected (Not Detect); Parainfluenza Virus 1 Not Detected (Not Detect); Parainfluenza Virus 2 Not Detected (Not Detect); Parainfluenza Virus 3 Not Detected (Not Detect); Parainfluenza Virus 4 Not Detected (Not Detect); Respiratory Syncytial Virus Detected (Not Detect); SARS- CoV-2 Not Detected (Not Detecte)
== END 2023-07-07 22:55 | disposition home or self-care (01) ==
PROVIDERS: Emergency Provider Emergency Medicine
DX: J06.9 Acute upper respiratory infection, unspecified (principal); B97.4 Respiratory syncytial virus as the cause of diseases classified elsewhere; R10.2 Pelvic and perineal pain; Z91.410 Personal history of adult physical and sexual abuse; Z20.822 Contact with and (suspected) exposure to COVID-19
CPT/HCPCS: 36415; 80053; 84702; 85025; 87633; 96361; 96374; 99284; J1885

== ENCOUNTER 2023-07-19 07:16 | Emergency (ER) | payer OTHER, SELFPAY ==
[2023-07-19] VITALS (12 sets, daily range): BP systolic 101–120; BP diastolic 65–81; PULSE 68–94; RESP 15–33; TEMP 36.8; O2SAT 98–100; BMI 28.5
--- NOTE | 2023-07-19 07:40 | DI.RAD.S_ITS ---
PROCEDURE: XR CHEST 1V INDICATIONS: chest pain TECHNIQUE: One view of the chest was acquired. COMPARISON: [facility], CR, XR CHEST 2V, 09/24/2022, 12:06. FINDINGS: Overlying EKG lead slightly limit evaluation. Surgical changes and devices: None. Lungs and pleura: Lungs are clear. No pleural effusions or pneumothorax. Mediastinum: Mediastinal contours appear normal. Heart size is normal. Bones and chest wall: No suspicious bony lesions. Overlying soft tissues appear unremarkable. IMPRESSION: No acute cardiopulmonary process Dictated by: Rebeca Gilman M.D. on 07/19/2023 at 7:57 Approved by: Rebeca Gilman M.D. on 07/19/2023 at 7:58
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
--- NOTE | 2023-07-19 08:35 | PC.NURSE ---
Pt states she has had similar episodes to today the past week including feeling like she is going to pass out. This morning pt felt fine and went to work. While at work she felt hot, dizzy, and passed out. She denies LOC and denies hitting her head or any other injuries from passing out. Pt then got up and was told to drink some water. While walking a few minutes later at work she felt like she was close to passing out again and EMS was called.
[2023-07-19] MEDS: KETOROLAC 30 MG/ML VIAL 15 MG IV (09:35)
[2023-07-19] MEDS: SODIUM CHLORIDE 0.9% 1,000 ML 1000 ML IV ×2 (09:35→11:43)
[2023-07-19 09:59] LABS: Prothrombin Time 11.6 SECONDS (9.4-12.5)
[2023-07-19 10:02] LABS: HEMOLYSIS < 15 (0-50); PTT Partial Thromboplastin Tim 28 SECONDS (25.1-36.5); Sodium 137 mmol/L (137-145)
[2023-07-19 10:05] LABS: Alanine Aminotransferase 14 IU/L (<35); Albumin 4.1 g/dL (3.5-5.0); Albumin Globulin Ratio 1.2 (1.0-2.8); Alkaline Phosphatase 69 U/L (38-126); Aspartate Aminotransferase 23 IU/L (14-36); BUN Creatinine Ratio 13.6 (6-22); Bilirubin Total 0.4 mg/dL (0.2-1.3); Blood Urea Nitrogen 8 mg/dL (7-17); Calcium 9.2 mg/dL (8.4-10.2); Carbon Dioxide 27 mmol/L (22-32); Chloride 103 mmol/L (98-107); Creatine Kinase 47 U/L (30-135); Estimated Glomerular Filt Rate > 60 mL/min (>60); Globulin 3.4 g/dL (1.7-4.1); Glucose 90 mg/dL (70-100); Lipase 112 U/L (23-300); Magnesium 2.1 mg/dL (1.6-2.3); Potassium 3.9 mmol/L (3.4-5.1); Total Protein 7.5 g/dL (6.3-8.2)
[2023-07-19 10:09] LABS: Add Manual Diff / Slide Review NO; Basophils Absolute Auto 0 /uL (0-100); Basophils Percent Auto 0.3 % (0-2); Eosinophils Absolute Auto 100 /uL (0-450); Eosinophils Percent Auto 1.2 % (2-4); Hemoglobin 12.8 g/dL (12.0-16.0); Lymphocytes Absolute Auto 1600 /uL (1100-4500); Lymphocytes Percent Auto 14.2 % (25-40); Mean Corpuscular HGB Conc 33.7 % (30-36); Mean Corpuscular Hemoglobin 28.4 PG (26-34); Mean Corpuscular Volume 84.1 fL (80-100); Monocytes Absolute Auto 600 /uL (0-900); Monocytes Percent Auto 5.5 % (3-14); Neutrophils Absolute Auto 8800 /uL (1500-7000); Neutrophils Percent Auto 78.8 % (50-75); Platelet Count 334 X10^3/uL (150-400); Red Blood Cell Count 4.52 X10^6/uL (4.0-5.2); Red Cell Distribution Width 13.7 % (11.6-14.8); White Blood Cell Count 11.2 X10^3/uL (4.5-11.0)
[2023-07-19 10:15] LABS: Troponin I < 0.012 ng/mL (0.01-0.034)
[2023-07-19 10:21] LABS: HCG Quantitative /Beta subunit < 2.4 mIU/mL
--- NOTE | 2023-07-19 11:48 | PC.NURSE ---
Pt wants to leave AMA. Pt does not have ride. Car is 2 miles away. Pt refuses to stay. [employer] has talked with pt. Dr Black updated. Pt refused 2nd liter of NS
== END 2023-07-19 12:01 | disposition home or self-care (01) ==
PROVIDERS: Emergency Provider Emergency Medicine
DX: I95.1 Orthostatic hypotension (principal)
CPT/HCPCS: 36415; 71045; 80053; 82550; 83690; 83735; 84484; 84702; 85025; 85610; 85730; 93005; 96361; 96374; 99284; J1885

== ENCOUNTER 2023-08-01 07:34 | Emergency (ER) | payer OTHER, SELFPAY ==
[2023-08-01] VITALS (27 sets, daily range): BP systolic 91–113; BP diastolic 52–81; PULSE 64–105; RESP 5–30; TEMP 36.8; O2SAT 93–100; BMI 27.8
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
[2023-08-01 07:58] LABS: Add Manual Diff / Slide Review NO; Basophils Absolute Auto 0 /uL (0-100); Basophils Percent Auto 0.7 % (0-2); Eosinophils Absolute Auto 100 /uL (0-450); Eosinophils Percent Auto 1.8 % (2-4); Hematocrit 36.3 % (36-46); Hemoglobin 12.3 g/dL (12.0-16.0); Lymphocytes Absolute Auto 1400 /uL (1100-4500); Lymphocytes Percent Auto 26.2 % (25-40); Mean Corpuscular HGB Conc 33.8 % (30-36); Mean Corpuscular Hemoglobin 28.6 PG (26-34); Mean Corpuscular Volume 84.5 fL (80-100); Monocytes Absolute Auto 500 /uL (0-900); Monocytes Percent Auto 10.3 % (3-14); Neutrophils Absolute Auto 3200 /uL (1500-7000); Platelet Count 272 X10^3/uL (150-400); Red Cell Distribution Width 13.7 % (11.6-14.8); White Blood Cell Count 5.3 X10^3/uL (4.5-11.0)
[2023-08-01] MEDS: SODIUM CHLORIDE 0.9% 1,000 ML 1000 ML IV ×2 (08:01→08:49)
[2023-08-01 08:06] LABS: D Dimer 339 ng/ml (<500)
[2023-08-01 08:22] LABS: Acetaminophen < 10 ug/mL (10-30); Alanine Aminotransferase 15 IU/L (<35); Albumin 4.1 g/dL (3.5-5.0); Albumin Globulin Ratio 1.3 (1.0-2.8); Alkaline Phosphatase 54 U/L (38-126); Aspartate Aminotransferase 23 IU/L (14-36); BUN Creatinine Ratio 15.2 (6-22); Bilirubin Total 0.5 mg/dL (0.2-1.3); Blood Urea Nitrogen 10 mg/dL (7-17); Calcium 9.2 mg/dL (8.4-10.2); Carbon Dioxide 23 mmol/L (22-32); Estimated Glomerular Filt Rate > 60 mL/min (>60); Ethanol (ETOH) < 10 mg/dL; Globulin 3.2 g/dL (1.7-4.1); Glucose 106 mg/dL (70-100); HEMOLYSIS < 15 (0-50); Salicylate < 1.0 mg/dL (<20); Total Protein 7.3 g/dL (6.3-8.2)
[2023-08-01 08:30] LABS: Chloride 103 mmol/L (98-107); Potassium 3.6 mmol/L (3.4-5.1); Sodium 135 mmol/L (137-145)
[2023-08-01 08:31] LABS: Troponin I < 0.012 ng/mL (0.01-0.034)
[2023-08-01 08:46] LABS: Creatine Kinase 57 U/L (30-135)
--- NOTE | 2023-08-01 08:54 | PC.NURSE ---
BP 92/56, physician aware, second litre of fluid ordered/administered.
[2023-08-01 09:30] LABS: Pregnancy Test Serum,Qual Negative (Negative)
[2023-08-01 09:47] LABS: Ur Creatinine Normal (Normal); Ur Specific Gravity Normal (Normal); Urine Tetrahydrocannabinol Positive (Negative); Urine pH Normal (Normal)
[2023-08-01 09:48] LABS: UR Morphine/Opiate cutoff 300 Negative (Negative); Urine Amphetamines Negative (Negative); Urine Barbiturates Negative (Negative); Urine Benzodiazepines Negative (Negative); Urine Cocaine Negative (Negative); Urine MDMA Negative (Negative); Urine Methadone Negative (Negative); Urine Methamphetamines Negative (Negative); Urine Oxycodone Negative (Negative); Urine Phencyclidine Negative (Negative); Urine Tricyclic Antidepressant Negative (Negative)
[2023-08-01 10:03] LABS: Bacteria Urine Few (2-10); Culture Indicated Urine Specimen Cultured; RBC Urine None Seen (0-5/HPF); Squamous Epithelial Cell Urine 1-5 /HPF (0-5/HPF); WBC Urine 0-1/HPF (0-5/HPF)
--- NOTE | 2023-08-01 10:31 | PC.NURSE ---
Pt continues to be hypotensive, physician aware. Orthostatics ordered/administered. Pt states she still feels lightheaded.
[2023-08-01 11:21] LABS: Adenovirus Not Detected (Not Detect); B. parapertussis Not Detected (Not Detecte); Bordetella pertussis Not Detected (Not Detect); Chlamydophila pneumoniae Not Detected (Not Detect); Coronavirus 229E Not Detected (Not Detect); Coronavirus HKU1 Not Detected (Not Detect); Coronavirus NL 63 Not Detected (Not Detect); Coronavirus OC43 Not Detected (Not Detect); Human Metapneumovirus Not Detected (Not Detect); Human Rhinovirus/Enterovirus Not Detected (Not Detect); Influenza A Not Detected (Not Detect); Influenza B Not Detected (Not Detect); Mycoplasma pneumoniae Not Detected (Not Detect); Parainfluenza Virus 1 Not Detected (Not Detect); Parainfluenza Virus 2 Not Detected (Not Detect); Parainfluenza Virus 3 Not Detected (Not Detect); Parainfluenza Virus 4 Not Detected (Not Detect); Respiratory Syncytial Virus Not Detected (Not Detect); SARS- CoV-2 Not Detected (Not Detecte)
== END 2023-08-01 12:15 | disposition home or self-care (01) ==
PROVIDERS: Emergency Provider Emergency Medicine
DX: R55 Syncope and collapse (principal); R79.89 Other specified abnormal findings of blood chemistry
CPT/HCPCS: 36415; 71045; 80053; 80305; 80320; 80329; 81003; 81015; 81025; 82550; 82962; 83605; 84443; 84484; 84703; 85025; 85379; 87086; 87633; 93005; 93010; 96360; 96361; 99284; G0480

== ENCOUNTER 2023-08-22 02:14 | Emergency (ER) | payer OTHER, SELFPAY ==
[2023-08-22] VITALS (10 sets, daily range): BP systolic 101–119; BP diastolic 54–68; PULSE 73–102; RESP 17–33; TEMP 37; O2SAT 97–100; BMI 28.1
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
[2023-08-22 02:46] LABS: Add Manual Diff / Slide Review NO; Basophils Absolute Auto 100 /uL (0-100); Basophils Percent Auto 0.9 % (0-2); Eosinophils Absolute Auto 100 /uL (0-450); Eosinophils Percent Auto 0.8 % (2-4); Hematocrit 36.8 % (36-46); Hemoglobin 12.4 g/dL (12.0-16.0); Lymphocytes Absolute Auto 3100 /uL (1100-4500); Lymphocytes Percent Auto 34.5 % (25-40); Mean Corpuscular HGB Conc 33.6 % (30-36); Mean Corpuscular Hemoglobin 28.5 PG (26-34); Mean Corpuscular Volume 84.7 fL (80-100); Monocytes Absolute Auto 800 /uL (0-900); Neutrophils Absolute Auto 4800 /uL (1500-7000); Neutrophils Percent Auto 54.8 % (50-75); Platelet Count 270 X10^3/uL (150-400); Red Blood Cell Count 4.34 X10^6/uL (4.0-5.2); Red Cell Distribution Width 13.7 % (11.6-14.8); White Blood Cell Count 8.8 X10^3/uL (4.5-11.0)
--- NOTE | 2023-08-22 02:49 | DI.CT.S_ITS ---
PROCEDURE: CT HEAD/BRAIN WO CON INDICATIONS: HEADACHE TECHNIQUE: Noncontrast 4.5 mm thick angled axial sections acquired from the foramen magnum to the vertex, with coronal and sagittal reformats. For radiation dose reduction, the following was used: automated exposure control, adjustment of mA and/or kV according to patient size. COMPARISON: None. FINDINGS: Image quality: Diagnostic. CSF spaces: Basal cisterns are patent. No extra-axial fluid collections. Ventricles are normal in size and shape. Brain: No midline shift. No intracranial masses or hemorrhage. [place]-white matter interface is normal. Skull and face: Calvarium and visualized facial bones are intact, without suspicious lesions. Sinuses: Visualized sinuses and mastoids are clear. IMPRESSION: No evidence acute intracranial process. Comment: Final report is concordant with preliminary interpretation provided by [facility]. Dictated by: Virgilio Rocha M.D. on 08/22/2023 at 7:43 Approved by: Virgilio Rocha M.D. on 08/22/2023 at 7:44
[2023-08-22] MEDS: SODIUM CHLORIDE 0.9% 1,000 ML 1000 ML IV (02:53)
[2023-08-22] MEDS: METOCLOPRAMIDE 10 MG/2 ML INJ IV (02:55)
[2023-08-22] MEDS: diphenhydrAMINE 50 MG/ML VIAL 25 MG IV (02:58)
[2023-08-22 03:18] LABS: Alanine Aminotransferase 15 IU/L (<35); Albumin Globulin Ratio 1.2 (1.0-2.8); Alkaline Phosphatase 60 U/L (38-126); Aspartate Aminotransferase 22 IU/L (14-36); Bilirubin Total 0.7 mg/dL (0.2-1.3); Blood Urea Nitrogen 9 mg/dL (7-17); Calcium 9.1 mg/dL (8.4-10.2); Carbon Dioxide 22 mmol/L (22-32); Chloride 104 mmol/L (98-107); Estimated Glomerular Filt Rate > 60 mL/min (>60); Globulin 3.4 g/dL (1.7-4.1); Glucose 106 mg/dL (70-100); HEMOLYSIS < 15 (0-50); Potassium 3.2 mmol/L (3.4-5.1); Sodium 136 mmol/L (137-145); Total Protein 7.4 g/dL (6.3-8.2)
[2023-08-22] MEDS: DROPERIDOL 5 MG/2 ML VIAL 2.5 MG IV (04:08)
== END 2023-08-22 04:40 | disposition home or self-care (01) ==
PROVIDERS: Emergency Provider Emergency Medicine
DX: R07.9 Chest pain, unspecified (principal); R51.9 Headache, unspecified; R00.2 Palpitations
CPT/HCPCS: 36415; 70450; 80053; 85025; 93005; 96361; 96374; 96375; 99284; J1200; J1790; J2765

== ENCOUNTER 2023-11-27 08:19 | Emergency (ER) | payer OTHER, SELFPAY ==
[2023-11-27 08:25] VITALS: BP 112/74; PULSE 79; O2SAT 100
[2023-11-27 08:27] VITALS: BP 112/74; PULSE 79; RESP 18; TEMP 36.8; O2SAT 100; BMI 27.1
[2023-11-27 08:30] VITALS: PULSE 86; O2SAT 100
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
[2023-11-27 09:00] VITALS: PULSE 73; RESP 18; O2SAT 100
[2023-11-27 09:03] VITALS: BP 112/74; PULSE 78; RESP 16; TEMP 36.9; O2SAT 99
--- NOTE | 2023-11-27 13:06 | CM.SWNOTE ---
ED INDUSTRIAL ENGINEERING ANALYST Note: Pt is a 28yo female, resident of [place]. Per EMR, pt presented to the ED via EMS due to a syncopal episode. Pt already discharged from ED before INDUSTRIAL ENGINEERING ANALYST started shift. INDUSTRIAL ENGINEERING ANALYST was consulted due to pt endorsing recent food and housing insecurity. Per ED Provider, pt was cooperative but did not want to stay for INDUSTRIAL ENGINEERING ANALYST assessment; was open to speaking on the phone. INDUSTRIAL ENGINEERING ANALYST called pt's phone number in chart. Call rang once before being forwarded to voice message. INDUSTRIAL ENGINEERING ANALYST left a voice message and left direct extension for return call; offering to connect pt with resources for food and housing if consenting. GISSELLE Kang
== END 2023-11-27 09:03 | disposition home or self-care (01) ==
PROVIDERS: Emergency Provider Emergency Medicine
DX: R55 Syncope and collapse (principal)
CPT/HCPCS: 93005; 99281; 99282

== ENCOUNTER 2024-01-01 06:55 | Emergency (ER) | payer OTHER, SELFPAY ==
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
[2024-01-01 07:22] VITALS: BP 110/69; PULSE 84; RESP 16; TEMP 36.8; O2SAT 98; BMI 28.1
[2024-01-01 07:30] VITALS: BP 99/61; PULSE 78; RESP 16; O2SAT 99
[2024-01-01 07:30] LABS: Add Manual Diff / Slide Review NO; Basophils Absolute Auto 100 /uL (0-100); Basophils Percent Auto 0.9 % (0-2); Eosinophils Absolute Auto 200 /uL (0-450); Eosinophils Percent Auto 2.8 % (2-4); Hematocrit 37.8 % (36-46); Hemoglobin 12.6 g/dL (12.0-16.0); Lymphocytes Absolute Auto 3200 /uL (1100-4500); Lymphocytes Percent Auto 50.5 % (25-40); Mean Corpuscular HGB Conc 33.3 % (30-36); Mean Corpuscular Hemoglobin 28.1 PG (26-34); Mean Corpuscular Volume 84.5 fL (80-100); Monocytes Absolute Auto 600 /uL (0-900); Monocytes Percent Auto 10.1 % (3-14); Neutrophils Absolute Auto 2300 /uL (1500-7000); Neutrophils Percent Auto 35.7 % (50-75); Platelet Count 257 X10^3/uL (150-400); Red Blood Cell Count 4.48 X10^6/uL (4.0-5.2); Red Cell Distribution Width 14.8 % (11.6-14.8); White Blood Cell Count 6.4 X10^3/uL (4.5-11.0)
[2024-01-01] MEDS: SODIUM CHLORIDE 0.9% 1,000 ML 1000 ML IV (07:30)
[2024-01-01 07:44] LABS: INR 0.9 (0.9-1.3); Prothrombin Time 10.1 SECONDS (9.4-12.5)
[2024-01-01 07:47] LABS: PTT Partial Thromboplastin Tim 34 SECONDS (25.1-36.5)
[2024-01-01 07:50] LABS: Alanine Aminotransferase 12 IU/L (<35); Albumin 4.2 g/dL (3.5-5.0); Albumin Globulin Ratio 1.5 (1.0-2.8); Alkaline Phosphatase 67 U/L (38-126); Aspartate Aminotransferase 27 IU/L (14-36); BUN Creatinine Ratio 16.7 (6-22); Bilirubin Total 0.4 mg/dL (0.2-1.3); Blood Urea Nitrogen 12 mg/dL (7-17); Calcium 8.7 mg/dL (8.4-10.2); Carbon Dioxide 25 mmol/L (22-32); Chloride 106 mmol/L (98-107); Creatine Kinase 65 U/L (30-135); Estimated Glomerular Filt Rate > 60 mL/min (>60); Globulin 2.8 g/dL (1.7-4.1); Glucose 97 mg/dL (70-100); HEMOLYSIS < 15 (0-50); Lipase 100 U/L (23-300); Sodium 136 mmol/L (137-145)
[2024-01-01 07:53] LABS: Ethanol (ETOH) < 10 mg/dL
[2024-01-01 07:56] LABS: Ictotest Urine Negative (Negative)
[2024-01-01 07:57] LABS: UR Morphine/Opiate cutoff 300 Negative (Negative); Ur Creatinine Normal (Normal); Ur Specific Gravity Normal (Normal); Urine Amphetamines Negative (Negative); Urine Barbiturates Negative (Negative); Urine Benzodiazepines Negative (Negative); Urine Cocaine Negative (Negative); Urine MDMA Negative (Negative); Urine Methadone Negative (Negative); Urine Methamphetamines Negative (Negative); Urine Oxycodone Negative (Negative); Urine Phencyclidine Negative (Negative); Urine Tetrahydrocannabinol Positive (Negative); Urine Tricyclic Antidepressant Negative (Negative); Urine pH Normal (Normal)
[2024-01-01 07:58] LABS: Urine Volume 10mL (spun)
[2024-01-01 07:59] LABS: RBC Urine 1-5/HPF (0-5/HPF); WBC Urine 5-10/HPF (0-5/HPF)
[2024-01-01 08:00] LABS: Bacteria Urine Many (>30); Culture Indicated Urine Specimen Cultured; Squamous Epithelial Cell Urine 1-5 /HPF (0-5/HPF)
[2024-01-01 08:01] LABS: Troponin I < 0.012 ng/mL (0.01-0.034)
[2024-01-01 08:07] LABS: HCG Quantitative /Beta subunit < 2.39 mIU/mL
[2024-01-01 08:30] VITALS: BP 104/67; PULSE 63; RESP 14; O2SAT 99
[2024-01-01 09:30] VITALS: BP 104/64; PULSE 71; RESP 15; O2SAT 99
[2024-01-01 09:37] LABS: Urine N gonorrhoeae NOT DETECTED
[2024-01-01 09:38] LABS: Urine Chlamydia NOT DETECTED
[2024-01-10 10:14] LABS: Chlamydia trachomatis Negative (Negative); Mycoplasma genitalium Negative (Negative); Neisseria gonorrhoeae Negative (Negative)
== END 2024-01-01 09:51 | disposition home or self-care (01) ==
PROVIDERS: Emergency Provider Emergency Medicine
DX: O23.41 Unspecified infection of urinary tract in pregnancy, first trimester (principal); N39.0 Urinary tract infection, site not specified; R10.9 Unspecified abdominal pain; Z3A.01 Less than 8 weeks gestation of pregnancy
CPT/HCPCS: 36415; 71045; 76830; 76856; 80053; 80305; 80320; 81003; 81015; 81025; 82550; 83690; 84484; 84702; 85025; 85610; 85730; 87070; 87077; 87086; 87186; 87205; 87210; 87491; 87563; 87591; 93005; 93975; 96360; 99284

== ENCOUNTER 2024-05-12 15:58 | Emergency (ER) | payer OTHER, SELFPAY ==
[2024-05-12] VITALS (7 sets, daily range): BP systolic 109–128; BP diastolic 66–77; PULSE 79–95; RESP 17–23; TEMP 36.8; O2SAT 100; BMI 25.0
--- NOTE | 2024-05-12 16:09 | EKG_ITS ---
[address] [id number] Test Date: 2024-05-12 Pat Name: Dipti Tom Department: Room: Gender: Female Insect Control Aide: MARINA : 1995 Requested By: Order Number: [id number] Reading MD: Han Monzon Measurements Intervals [place] Rate: 84 P: 57 GA: 144 QRS: -2 QRSD: 68 T: 8 QT: 348 QTc: 411 Interpretive Statements Normal sinus rhythm Electronically Signed On 05-13-2024 13:38:54 PDT by Han Monzon
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
--- NOTE | 2024-05-12 16:12 | DI.RAD.S_ITS ---
PROCEDURE: XR CHEST 1V INDICATIONS: chest pain TECHNIQUE: One view of the chest was acquired. COMPARISON: [facility], CR, XR CHEST 1V, 01/01/2024, 8:05. FINDINGS: Surgical changes and devices: None. Lungs and pleura: Lungs are clear. No pleural effusions or pneumothorax. Mediastinum: Mediastinal contours appear normal. Heart size is normal. Bones and chest wall: No suspicious bony lesions. Overlying soft tissues appear unremarkable. IMPRESSION: No acute cardiopulmonary pathology. Dictated by: Nathan Carney M.D. on 05/12/2024 at 16:22 Approved by: Nathan Carney M.D. on 05/12/2024 at 16:25
[2024-05-12 16:37] LABS: Add Manual Diff / Slide Review NO; Basophils Absolute Auto 100 /uL (0-100); Basophils Percent Auto 1.3 % (0-2); Eosinophils Absolute Auto 100 /uL (0-450); Eosinophils Percent Auto 0.9 % (2-4); Hematocrit 37.6 % (36-46); Hemoglobin 12.6 g/dL (12.0-16.0); Lymphocytes Absolute Auto 2300 /uL (1100-4500); Lymphocytes Percent Auto 32.8 % (25-40); Mean Corpuscular HGB Conc 33.5 % (30-36); Mean Corpuscular Hemoglobin 28.8 PG (26-34); Mean Corpuscular Volume 85.9 fL (80-100); Monocytes Absolute Auto 600 /uL (0-900); Monocytes Percent Auto 8.7 % (3-14); Neutrophils Absolute Auto 3900 /uL (1500-7000); Neutrophils Percent Auto 56.3 % (50-75); Platelet Count 270 X10^3/uL (150-400); Red Blood Cell Count 4.38 X10^6/uL (4.0-5.2); Red Cell Distribution Width 13.8 % (11.6-14.8); White Blood Cell Count 6.9 X10^3/uL (4.5-11.0)
[2024-05-12 16:48] LABS: Alanine Aminotransferase 15 IU/L (<35); Albumin 4.2 g/dL (3.5-5.0); Albumin Globulin Ratio 1.4 (1.0-2.8); Alkaline Phosphatase 58 U/L (38-126); Aspartate Aminotransferase 24 IU/L (14-36); BUN Creatinine Ratio 11.1 (6-22); Bilirubin Total 0.4 mg/dL (0.2-1.3); Blood Urea Nitrogen 7 mg/dL (7-17); Calcium 8.7 mg/dL (8.4-10.2); Carbon Dioxide 26 mmol/L (22-32); Chloride 105 mmol/L (98-107); Creatine Kinase 81 U/L (30-135); Estimated Glomerular Filt Rate > 60 mL/min (>60); Globulin 3.1 g/dL (1.7-4.1); Glucose 106 mg/dL (70-100); HEMOLYSIS < 15 (0-50); Lipase 76 U/L (23-300); Potassium 3.7 mmol/L (3.4-5.1); Sodium 136 mmol/L (137-145); Total Protein 7.3 g/dL (6.3-8.2)
[2024-05-12 16:56] LABS: NT-proBNP (BNP-Adult 18+) 46 pg/mL (<125)
[2024-05-12 16:59] LABS: Troponin I < 0.012 ng/mL (0.01-0.034)
== END 2024-05-12 17:41 | disposition home or self-care (01) ==
PROVIDERS: Emergency Provider Student in an Organized Health Care Education/Training Program
DX: R07.9 Chest pain, unspecified (principal)
CPT/HCPCS: 36415; 71045; 80053; 82550; 83690; 83880; 84443; 84484; 85025; 93005; 99284

== ENCOUNTER 2024-07-07 00:41 | Emergency (ER) | payer OTHER, SELFPAY ==
--- NOTE | 2024-07-07 00:50 | EKG_ITS ---
[address] [address] Test Date: 2024-07-07 Pat Name: Dipti Tom Department: [facility] Room: Gender: Female Forensic Technician: RAJESH SANDERSON : 1995 Requested By: Order Number: [id number] Reading MD: Dariel Zavala Measurements Intervals [place] Rate: 71 P: 59 WI: 136 QRS: 19 QRSD: 72 T: 24 QT: 390 QTc: 423 Interpretive Statements Normal sinus rhythm with sinus arrhythmia Electronically Signed On 07-07-2024 19:42:59 PST by Dariel Zavala
[2024-07-07 00:52] VITALS: BP 141/89; PULSE 18; RESP 18; TEMP 37.2; O2SAT 100; BMI 23.5
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
== END 2024-07-07 01:08 | disposition home or self-care (01) ==
PROVIDERS: Emergency Provider Emergency Medicine
DX: R07.89 Other chest pain (principal); I49.8 Other specified cardiac arrhythmias
CPT/HCPCS: 93005; 99281; 99283

== ENCOUNTER 2024-08-01 14:18 | Emergency (ER) | payer OTHER, SELFPAY ==
[2024-08-01 14:35] VITALS: BP 116/72; PULSE 77; RESP 16; TEMP 36.8; O2SAT 100; BMI 25.0
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
[2024-08-01 15:38] LABS: Appearance Urine UA CLEAR; Bilirubin Urine UA NEGATIVE (NEGATIVE); Color Urine UA YELLOW; Glucose Urine UA NEGATIVE (Negative); Ketones Urine UA 1+ (NEGATIVE); Leukocyte Esterase Urine UA TRACE (NEGATIVE); Nitrite Urine UA POSITIVE (Negative); Occult Blood Urine UA NEGATIVE (Negative); Protein Urine UA NEGATIVE (Negative); Specific Gravity Urine UA 1.025 (1.000-1.035); Urobilinogen Urine UA 0.2 E.U./dL (0.2)
[2024-08-01 15:45] LABS: Bacteria Urine Many (>30); RBC Urine 0-1/HPF (0-5/HPF); Squamous Epithelial Cell Urine 10-30 /HPF (0-5/HPF); Urine Volume 10mL (spun); WBC Urine 10-30/HPF (0-5/HPF)
[2024-08-01 15:46] LABS: Amorphous Sediment Urine 2+; Culture Indicated Urine Specimen Cultured; Transitional Epi Cells Urine 0-1/HPF (0-5/HPF)
[2024-08-01 17:00] VITALS: BP 110/75; PULSE 87; RESP 16; TEMP 36.6; O2SAT 100
== END 2024-08-01 17:01 | disposition home or self-care (01) ==
PROVIDERS: Emergency Provider Registered Nurse
DX: N30.00 Acute cystitis without hematuria (principal); R10.30 Lower abdominal pain, unspecified; S30.1XXA Contusion of abdominal wall, initial encounter; V89.2XXA Person injured in unspecified motor-vehicle accident, traffic, initial encounter
CPT/HCPCS: 36415; 74177; 81001; 81003; 81025; 87077; 87086; 87186; 99283; 99284; Q9967

== ENCOUNTER 2024-10-27 09:53 | Emergency (ER) | payer SELFPAY ==
[2024-10-27 10:36] VITALS: BP 113/57; PULSE 90; RESP 19; TEMP 36.7; O2SAT 99; BMI 25.3
--- NOTE | 2024-10-27 13:54 | CM.DPNOTE ---
DCP note HOME INSPECTOR received notice from ED provider asking questions re: pt's seroquel. per provider, pt came to the ED asking our provider to fill her home med and that she was not able to afford it. [facility]. HOME INSPECTOR spoke with mult contacts at [facility]. ([phone]) [facility] perscribed 200mg nightly seroquel 1/2 tablet. unsure why she did not get it delivered in the mail. will have Coral the renewals manager give this HOME INSPECTOR a call back to fill it. per [facility] website, med should be covered by pt's insurance. HOME INSPECTOR updated provider, waiting call back from [facility] PARMJIT Gomez. question: how long until it comes in the mail? HOME INSPECTOR will continue to support as needed CHARAN Desir
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
== END 2024-10-27 15:10 | disposition left against medical advice (07) ==
PROVIDERS: Emergency Provider Student in an Organized Health Care Education/Training Program
DX: O23.42 Unspecified infection of urinary tract in pregnancy, second trimester (principal); Z76.0 Encounter for issue of repeat prescription; N39.0 Urinary tract infection, site not specified; Z3A.20 20 weeks gestation of pregnancy
CPT/HCPCS: 81003; 81025; 99282